=== PATIENT | male | born 1960 | race Caucasian/White ===

== ENCOUNTER 2017-01-25 21:23 | Inpatient (IN) | payer MEDICARE ==
[~2017-01-25] VITALS: Ht 170.2 cm; Wt 141.1 kg
[~2017-01-25 21:23] MED LIST: ALDACTONE100 MG PO; ALDACTONE50 MG PO; CARDURA2 MG PO; CHRONULAC30 ML PO; COZAAR50 MG PO; DYAZIDE 37.5/251 CAP PO; ENULOSE10 G/15 ML PO; GABAPENTIN100 MG PO; HYDROCODON-ACE1 EAC9 PO; HYZAAR 100-25 T1 TAB PO; LANTUS INSULIN10 ML SC; LASIX40 MG PO; MUCINEX600 MG PO; NORCO 7.5/325 T1 TA1 PO; NORVASC5 MG PO; OXYCODONE HCL E20 MG PO; PERCOCET 10/3251 TA1 PO; PHENERGAN25 M1 PO; PROTONIX40 MG PO; PROZAC20 MG PO; RESTORIL15 MG PO; TESSALON PERLE100 MG PO; TOPROL XL50 MG PO; XIFAXAN550 MG PO; ZESTORETIC 10/11 TAB PO
[2017-01-25 22:33] LABS: APPEARANCE CLEAR (CLEAR); BILIRUBIN NEGATIVE (NEGATIVE); COLOR YELLOW (YELLOW); GLUCOSE NEGATIVE (NEGATIVE); KETONE NEGATIVE (NEGATIVE); LEUKOCYTE ESTERASE NEGATIVE (NEGATIVE); NITRITE NEGATIVE (NEGATIVE); PROTEIN NEGATIVE (NEGATIVE); SPECIFIC GRAVITY 1.015 (1.005-1.020); UROBILINOGEN NORMAL (NORMAL)
[2017-01-25 22:37] LABS: BASOPHILS 0.2 % (0-2); EOSINOPHILS 0.6 % (0-7); HEMATOCRIT 33.2 % (42.0-54.0); HEMOGLOBIN 11.2 g/dL (13.5-17.5); IMMATURE GRANULOCYTES 0.2 % (0-5); LYMPHOCYTES 9.8 % (15-50); MCH 31.2 pg (26.0-34.0); MCHC 33.7 g/dL (31.0-37.0); MCV 92.5 fL (80.0-100.0); MEAN PLATELET VOLUME 9.7 fL (7.4-10.4); MONOCYTES 11.1 % (2-11); NEUTROPHILS 78.1 % (40-80); RBC 3.59 10x6/uL (4.20-6.10); RDW 13.8 % (11.5-14.5); WBC 4.7 10x3/uL (4.8-10.8)
[2017-01-25 22:40] LABS: PLATELET COUNT 62 10x3/uL (130-400)
[2017-01-25 22:47] LABS: APTT 31.3 SECONDS (22.8-39.4); INR 1.27 (0.85-1.17); PROTIME 15.8 SECONDS (11.6-15.0)
[2017-01-25 22:50] LABS: UDS - AMPHET NEGATIVE QUAL (NEGATIVE); UDS - BARB NEGATIVE QUAL (NEGATIVE); UDS - BENZO NEGATIVE QUAL (NEGATIVE); UDS - COCAINE NEGATIVE QUAL (NEGATIVE); UDS - METH NEGATIVE QUAL (NEGATIVE); UDS - OPIATE POSITIVE QUAL (NEGATIVE); UDS - PCP NEGATIVE QUAL (NEGATIVE); UDS - THC NEGATIVE QUAL (NEGATIVE)
[2017-01-25 23:01] LABS: ALBUMIN 3.2 g/dL (3.4-5.0); ALKALINE PHOSPHATASE 103 U/L (46-116); ALT (SGPT) 42 U/L (10-68); BILIRUBIN - TOTAL 1.25 mg/dL (0.2-1.3); CALC OSMOLALITY 288 mosm/kg (275-300); CALCIUM 9.6 mg/dL (8.5-10.1); CARBON DIOXIDE 26.5 mmol/L (21.0-32.0); CHLORIDE - SERUM 103 mmol/L (98-107); CREATININE - SERUM 1.7 mg/dL (0.6-1.3); GLUCOSE 151 mg/dL (74-106); POTASSIUM - SERUM 5.4 mmol/L (3.5-5.1); PROTEIN - SERUM 7.2 g/dL (6.4-8.2); SODIUM 136 mmol/L (136-145); UREA NITROGEN 51 mg/dL (7-18); eGFR NON AFRICAN AMERICAN 44 mL/min (90-120)
[2017-01-25 23:02] LABS: D-DIMER-QUANTITATIVE 4.69 ug/mLFEU (0.20-0.54)
[2017-01-25 23:05] LABS: PLATELET ESTIMATE DECREASED
[2017-01-25 23:06] LABS: AMYLASE - SERUM 70 U/L (25-115); LIPASE 225 U/L (73-393); PRO BNP 45 pg/mL (0-125)
[2017-01-25 23:07] LABS: TROPONIN-I < 0.017 ng/mL (0.000-0.060)
[2017-01-26] VITALS (24 sets, daily range): BP systolic 72–155; BP diastolic 43–94; Ht 170.2 cm; Wt 141.1 kg
--- NOTE | 2017-01-26 03:20 | NUR ---
PT ARRIVED TO ICU FROM ER. BP 98/44. HR 52; SINUS BRADYCARDIA SHOWING ON MONITOR. RR 13; EQUAL; MOUTH BREATHING. 98% O2 SAT. TEMP 98.0; TEMPORAL. PT AROUSES TO PAIN; NON VERBAL. GROANS. MUMBLES UNCOMPREHENSIBLE SOUNDS. PIV TO LEFT UPPER ARM; PIV TO LEFT HAND; BOTH SALINE LOCKED. GENERALIZED EDEMA NOTED TO EXTREMITIES X4. NGT IN PLACE. FLORES IN PLACE; PINK TINGED URINE IN COLLECTION BAG.
--- NOTE | 2017-01-26 07:00 | NUR ---
REPORT RECEIVED. ASSESSMENT COMPLETED. WILL RETURN WITH SUPPLIES TO CLEAN PATIENT.
--- NOTE | 2017-01-26 07:30 | NUR ---
PATIENT CLEANED. PATIENT IS NOT ALERT, BUT IS STILL PUSHING STAFF AWAY WHEN TRYING TO PROVIDE CARE. HE IS ATTEMPTING TO PULL HIS NGT OUT. ORDER OBTAINED FOR RESTRAINT AND APPLIED. RECTAL TUBE WAS PLACED AT THIS TIME.
[2017-01-26] MEDS ORDERED: RIBASPHERE200 MG PO (07:48)
[2017-01-26] MEDS ORDERED: SOFOSBUVIR PO (07:49)
[2017-01-26] MEDS ORDERED: LEDIPASVIR PO (07:49)
--- NOTE | 2017-01-26 11:14 | NUR ---
PER PATIENTS REQUEST, HIS SISTER HAS BEEN CALLED. SHE WAS AWARE HE WAS UP HERE AND STATED SHE WOULD BE UP HERE NEXT VISITATION TO SEE HIM. SHE STATED SHE FIGURED HIS AMMONIA LEVEL WAS UP BECAUSE HE HAS BEEN ACTING STRANGER AND STRANGER FOR THE LAST WEEK. THAT WAS PRETTY MUCH ALL SHE SAID AND THEN THE CONVERSATION WAS ENDED.
--- NOTE | 2017-01-26 11:18 | NUR ---
PATIENT WAS TURNED TO HIS LEFT. HE HAS WORKED HIS WAY BACK ON HIS BACK. STATED THAT HE CAN'T LAY ON HIS SIDES. TRIED TO EXPLAIN THAT WE DID NOT WANT HIM TO GET SKIN BREAKDOWN, BUT HE STATED HE DID NOT CARE, HE CAN NOT SLEEP ON HIS SIDE.
--- NOTE | 2017-01-26 11:34 | NUR ---
PATIENT IS MORE ALERT AND ABLE TO TALK. STILL HAS CONFUSION. AT THIS TIME THE RESTRAINTS ARE BEING LEFT OFF. IT WAS EXPLAINED THAT IF HER WERE TO START PULLING ON LINES WE WOULD HAVE TO RERESTRAIN HIM AND PUT THE LINE BACK IN.
--- NOTE | 2017-01-26 12:31 | NUR ---
PATIENTS SISTER HERE. STATED THAT THE PATIENT HAD $150 IN HIS SHIRT POCKET AND THEY ARE WANTING TO KNOW WHERE IT IS. HAVE CALLED AND SPOKE WITH FAUSTO IN THE ER AND SHE SAID THAT IT WOULD BE IN THE SAFE IF THERE WAS ANY MONEY. CALLED [phone] AND SPOKE WITH BRIGITTE, SHE STATED THAT THERE IS NOTHING ON THE LOG THAT SHOWS IT WAS LOCKED UP AND HAS RETRIEVED THE NIEVES TO SEE IF BY CHANCE IT WAS PLACED IN THE LOCK UP WITHOUT BEING LOGGED. AFTER LOOKING SHE SAID THAT IT WAS NOT IN THE SAFE. SHE STATED THAT SHE LOOKED THROUGH THE NOTES AND IT DID NOT SHOW THE PATIENT HAD BELONGINGS. SHE SAID IT SAID THAT THE PATIENT ARRIVED.
--- NOTE | 2017-01-26 12:38 | NUR ---
SPOKE WITH GRISELDA ARROYO UNIT SUPERVISION. SHE IS AWARE OF THE SITUTATION.
--- NOTE | 2017-01-26 12:45 | NUR ---
CALLED AND SPOKE WITH SLY AT [facility]. EXPLAINED THE SITUTATION TO HIM. HE GATHERED THE PATIENTS NAME, , AND ADDRESS PICKED UP AT. HE WILL TALK TO HIS BEAUTY CONSULTANT AND THEY WILL LOOK INTO IT. HE STATED THAT SOMEONE WILL CALL ME BACK. NOW THE SISTER IS SAYING THAT HE HAD $ 150.00 VALE, HIS DEBIT CARD, HIS DRIVERS LICENS, HIS SOCIAL SECURITY CARD AND HIS INSURANCE CARDS IN THE ZIP LOCK BAGGIE THAT WAS IN HIS POCKET.
--- NOTE | 2017-01-26 13:23 | NUR ---
SPOKE WITH SLY FROM [employer]. HE STATED THAT THEY SPOKE WITH THE PARAMEDICS FROM LAST NIGHT AND THEY SAID THERE WAS NOTHING IN THE PATIENTS POCKET.
[2017-01-26] MEDS ORDERED: NORCO 7.5/325 T1 TA1 PO (13:48)
--- NOTE | 2017-01-26 14:05 | NUR ---
DC'D NGT FROM RIGHT NARE. PATIENT TOLERATED WELL. ATE CONTAINER OF APPLESAUCE WITH NO ISSUES NOTED.
--- NOTE | 2017-01-26 15:37 | NUR ---
PATIENTS SISTER CALLED AND SHE STATED THAT SHE DID FIND HIS MONEY IN A PANTS POCKET, BUT STILL HAS NOT FOUND HIS DEBIT CARD, DRIVERS LICENS, ETC YET. SHE REQUESTED THAT I LET THE PATIENT KNOW AND THAT SHE IS STILL LOOKING.
--- NOTE | 2017-01-26 19:30 | NUR ---
ASSESSMENT COMPLETE. S1S2. RR SHALLOW CLEAR EQUAL; NON LABORED. PERRLA. PT CONFUSED TO SITUATION. RESTLESS BEHAVIOR. ATTENTION SEEKING BEHAVIOR; USES CALL LIGHT REGULARLY WITH NO REQUEST UPON ENTER THE ROOM. DENIES PAIN. ABD DISTENDED ROUND/OBESE. RADIAL AND PEDAL PULSES PALPATED. NO DISTRESS NOTED. VSS. WILL CONTINUE TO MONITOR.
--- NOTE | 2017-01-26 21:17 | NUR ---
FAMILY AT BEDSIDE. UPDATE GIVEN.
--- NOTE | 2017-01-26 23:20 | NUR ---
REASSESSMENT COMPLETE. NO CHANGES FROM PREVIOUS ASSESSMENT. NO DISTRESS NOTED. VSS. CALL LIGHT IN REACH. WILL CONTINUE TO MONITOR.
[2017-01-27] VITALS (12 sets, daily range): BP systolic 113–172; BP diastolic 56–95
--- NOTE | 2017-01-27 00:15 | NUR ---
COMPLETE BED BATH. LINEN CHANGE. SMALL AMOUNT OF LEAKAGE FROM RECTAL TUBE. PT FREQUENTLY USES CALL LIGHT; "FORGETS" REASON FOR CALLING.
--- NOTE | 2017-01-27 02:50 | NUR ---
REASSESSMENT COMPLETE. NO CHANGES FROM PREVIOUS ASSESSMENT. FREQUENTLY USES CALL LIGHT. C/O BACK PAIN 12/28.
[2017-01-27 05:37] LABS: BASOPHILS 0.2 % (0-2); EOSINOPHILS 1.4 % (0-7); HEMATOCRIT 35.6 % (42.0-54.0); IMMATURE GRANULOCYTES 0.3 % (0-5); LYMPHOCYTES 11.7 % (15-50); MCH 31.4 pg (26.0-34.0); MCHC 33.7 g/dL (31.0-37.0); MCV 93.2 fL (80.0-100.0); MEAN PLATELET VOLUME 9.5 fL (7.4-10.4); MONOCYTES 14.6 % (2-11); NEUTROPHILS 71.8 % (40-80); PLATELET COUNT 61 10x3/uL (130-400); RBC 3.82 10x6/uL (4.20-6.10); RDW 14.1 % (11.5-14.5)
[2017-01-27 05:48] LABS: ANION GAP 12.4 mmol/L (8-16); CALCIUM 9.8 mg/dL (8.5-10.1); CARBON DIOXIDE 26.1 mmol/L (21.0-32.0)
[2017-01-27 05:56] LABS: CREATININE - SERUM 1.1 mg/dL (0.6-1.3); POTASSIUM - SERUM 4.5 mmol/L (3.5-5.1)
[2017-01-27 06:14] LABS: WBC 6.5 10x3/uL (4.8-10.8)
--- NOTE | 2017-01-27 07:00 | NUR ---
REPORT RECEIVED. ASSESSMENT COMPLETED. PATIENT HAS REQUESTED HIS DOCTOR BE ASKED ABOUT PHYSICAL THERAPY AND ABOUT NONOPOID PAIN MEDICATION TODAY. ASKED IF THIS COULD WAIT UNTIL HE ROUNDED OR IF HE FELT HE NEEDED IT NOW. HE STATED IT COULD WAIT. WILL TALK TO DR WESTFALL.
--- NOTE | 2017-01-27 07:45 | NUR ---
CALL PLACED TO PATIENTS SISTER PER HIS REQUEST FOR SUPPLIES WHEN SHE COMES UP TODAY. SHE STATED SHE WOULD DO HER BEST TO BRING HIM WHAT HE WANTED.
--- NOTE | 2017-01-27 09:22 | NUR ---
PATIENT HAS BEEN FREQUENTING THE CALL LIGHT TODAY. HE CALLS TO REQUEST YOU DO SOMETHING SIMPLE HIS CALL LIGHT WAS IN THE WRONG POSITION TO READING THINGS TO HIM FOR HIM TO TURN AROUND AND REMOVE IT FROM THE NURSES HANDS AND THEN READING IT TO THE NURSE, TO DEMANDING THE NURSE MAKE THE DOCTOR ORDER HIM WHAT HE WANTS. IT HAS BEEN EXPLAINED THAT WE ARE HERE TO ASSIST HIM TO DO WHAT HE CAN'T DO FOR HIMSELF. THAT WE ARE GLAD TO ASSIST AND HELP HIM WITH HIS NEEDS, BUT EVERYTHING NEEDS TO BE DONE AT ONE TIME AND HE CAN'T KEEP SAYING THERE IS NOTHING ELSE AND THEN PRESSING HIS CALL LIGHT LESS THAN 1 MINUTE AFTER THE NURSE LEAVES. ALSO EXPLAINED THAT I CAN RELAY HIS WISHES TO THE DOCTORS BUT I CAN NOT MAKE THEM ORDER ANYTHING. THAT IF THE DOCTOR FEELS IT IS APPROPRIATE, HE WILL ORDER IT. ENCOURAGED HIM TO GET ALL HIS WANTS/DEMANDS OUT RIGHT NOW SO THAT I WOULD BE ABLE TO TAKE CARE OF MY OTHER PATIENTS, GET MEDS PASSED, DOCUMENT, AND/OR ACTUALLY HAVE TIME TO TALK WITH THE DOCTORS. HE STATED HE WAS GOOD FOR THE MOMENT.
--- NOTE | 2017-01-27 10:38 | NUR ---
PATIENT'S SATS DECREASE INTO THE 70'S WHEN HE SLEEPS. PLACED OXYGEN AT 2L ON TO KEEP HIS SATS UP. PATIENT STATED THAT THEY WANTED HIM TO BE TESTED FOR SLEEP APNEA, BUT HE COULD NOT COME UP WITH THE MONEY FOR THE TESTING. HE ALSO SAID THAT HE HAS OXYGEN AT HOME TO USE WHEN HE NEEDS IT. WILL MONITOR.
--- NOTE | 2017-01-27 12:22 | NUR ---
PATIENTS BROTHER IN LAW BROUGHT IN HIS HOME RAJENDRA. THEY ARRIVED IN THE PRESCRIPTION BOTTLE THAT STATED IT WAS FILLED ON 01/04/17 IN A QUANITY OF 28. THE PILLS WERE COUNTED WITH GRISELDA REDMOND AND IT WAS FOUND THAT THERE WAS 12. THE PILLS WERE VERIFIED AND LABLED BY OLMAN, PHARMACIST AND LABLED WITH BARCODE. FIRST DOSE WILL BE GIVEN PER ORDERS. BOTTLE WILL BE LOCKED IN CASSETT AND TRANSFERED WITH PATIENT TO MED/SURG AND THEN SENT HOME WITH HIM ON DISCHARGE.
--- NOTE | 2017-01-27 12:55 | NUR ---
REPORT CALLED TO GRISELDA CUBA ON MED 2. PATIENT WILL BE GOING TO ROOM 2131. THE ROOM IS CURRENTLY DIRTY. SHE WILL CALL BACK WHEN THE ROOM IS CLEAN AND PATIENT WILL BE TRANSFERRED.
--- NOTE | 2017-01-27 19:15 | NUR ---
RECEIVED REPORT, PT SLEEPING, BED IS LOW, SRX2, FLORES IS DRAINING, CALL LIGHT IN REACH, WILL CONTINUE PLAN OF CARE
[2017-01-28 00:20] VITALS: BP 164/88
--- NOTE | 2017-01-28 00:37 | NUR ---
HELICOPTER UTILITY AIRCREWMAN AT BEDSIDE TO OBTAIN VITALS, CALL LIGHT IN REACH. WILL CONTINUE WITH PLAN OF CARE.
--- NOTE | 2017-01-28 04:13 | NUR ---
ASSESSMENT COMPLETE, SEE FLOWSHEET, PT SLEEPING, CALL LIGHT IN REACH, ALARM IS ON, CONTINUE PLAN OF CARE
[2017-01-28 04:37] VITALS: BP 181/77
[2017-01-28 08:20] VITALS: BP 189/88
[2017-01-28 12:28] VITALS: BP 165/66
[2017-01-28 14:19] LABS: BASOPHILS 0.1 % (0-2); EOSINOPHILS 0.6 % (0-7); HEMATOCRIT 34.4 % (42.0-54.0); HEMOGLOBIN 11.6 g/dL (13.5-17.5); IMMATURE GRANULOCYTES 0.5 % (0-5); LYMPHOCYTES 7.2 % (15-50); MCH 31.5 pg (26.0-34.0); MCHC 33.7 g/dL (31.0-37.0); MCV 93.5 fL (80.0-100.0); MEAN PLATELET VOLUME 9.7 fL (7.4-10.4); MONOCYTES 17.8 % (2-11); NEUTROPHILS 73.8 % (40-80); PLATELET COUNT 68 10x3/uL (130-400); RBC 3.68 10x6/uL (4.20-6.10); RDW 13.4 % (11.5-14.5)
[2017-01-28 14:26] LABS: WBC 12.4 10x3/uL (4.8-10.8)
[2017-01-28 14:45] LABS: ALBUMIN 3.3 g/dL (3.4-5.0); ANION GAP 9.6 mmol/L (8-16); BILIRUBIN - TOTAL 4.33 mg/dL (0.2-1.3); CARBON DIOXIDE 27.9 mmol/L (21.0-32.0); CREATININE - SERUM 1.1 mg/dL (0.6-1.3); POTASSIUM - SERUM 4.5 mmol/L (3.5-5.1); PROTEIN - SERUM 7.5 g/dL (6.4-8.2)
[2017-01-28 16:54] VITALS: BP 102/60
--- NOTE | 2017-01-28 17:15 | NUR ---
SPOKE WITH KATYA LOGAN APN TO REPORT LAB WORK.
--- NOTE | 2017-01-28 19:30 | NUR ---
RESUMED CARE OF PT, PT VISITING WITH FAMILY, DENIES ANY NEEDS, BED IS LOW, SRX2, CALL LIGHT IN REACH, WILL CONTINUE PLAN OF CARE
[2017-01-28 22:47] VITALS: BP 173/72
--- NOTE | 2017-01-29 00:37 | NUR ---
PRECISION OPTICS TECHNICIAN AT BEDSIDE TO OBTAIN VITALS, CALL LIGHT IN REACH. WILL CONTINUE WITH PLAN OF CARE.
[2017-01-29 01:51] VITALS: BP 159/91
--- NOTE | 2017-01-29 03:50 | NUR ---
ASSESSMENT COMPLETE, SEE FLOWSHEET, PT IS SLEEPING, FLORES DRAINING, CALL LIGHT IN REACH, BED IS LOW, SRX2, WILL CONTINUE PLAN OF CARE
[2017-01-29 05:13] VITALS: BP 175/84
[2017-01-29 07:19] LABS: BASOPHILS 0.1 % (0-2); EOSINOPHILS 1.1 % (0-7); HEMATOCRIT 33.3 % (42.0-54.0); HEMOGLOBIN 11.6 g/dL (13.5-17.5); IMMATURE GRANULOCYTES 0.7 % (0-5); LYMPHOCYTES 6.6 % (15-50); MCH 31.5 pg (26.0-34.0); MCHC 34.8 g/dL (31.0-37.0); MCV 90.5 fL (80.0-100.0); MEAN PLATELET VOLUME 9.4 fL (7.4-10.4); NEUTROPHILS 73.5 % (40-80); PLATELET COUNT 66 10x3/uL (130-400); RBC 3.68 10x6/uL (4.20-6.10); RDW 13.7 % (11.5-14.5); WBC 12.3 10x3/uL (4.8-10.8)
[2017-01-29 07:51] LABS: ALBUMIN 3.4 g/dL (3.4-5.0); ALKALINE PHOSPHATASE 66 U/L (46-116); ALT (SGPT) 45 U/L (10-68); CALC OSMOLALITY 267 mosm/kg (275-300); CALCIUM 9.4 mg/dL (8.5-10.1); CHLORIDE - SERUM 93 mmol/L (98-107); CREATININE - SERUM 0.9 mg/dL (0.6-1.3); GLUCOSE 173 mg/dL (74-106); POTASSIUM - SERUM 4.7 mmol/L (3.5-5.1); PROTEIN - SERUM 7.9 g/dL (6.4-8.2); SODIUM 127 mmol/L (136-145); THYROID STIMULATING HORMONE 0.29 uIU/mL (0.36-3.74); UREA NITROGEN 39 mg/dL (7-18); eGFR NON AFRICAN AMERICAN > 90 mL/min (90-120)
[2017-01-29 08:00] VITALS: BP 122/62
--- NOTE | 2017-01-29 08:00 | NUR ---
INTRODUCED MYSELF TO PT PRIMARY RN FOR TODAYS SHIFT. PT IS A&O SITTING UP IN BED. SHIFT ASSESSMENT COMPLETED. PT HAS A L.UPPER ARM PIV WITH DRSG CDI PATENT AND SWAB CAPS IN USE. PT ALSO HAS A L.HAND PIV THAT WAS INFILTRATED, D/C PIV WITH CATHETER TIP FULLY INTACT. PT HAS A FLORES IN PLACE DRAINING ORANGISH COLORED URINE TO FLORES BAG, STAT LOCK IN PLACE AND SECURED TO L.INNER THIGH. PT ALSO HAS RECTAL TUBE IN PLACE WITHOUT ANY FECES IN BAG. PTS ABDOMEN IS DISTENDED GREATLY AND VERY FIRM/TIGHT. HYPOACTIVE BS THROUGHOUT ALL QUADRANTS. PT C/O SEVERE ABD. PAIN IN RUQ. WILL TRY TO SEE IF PT CAN HAVE SOMETHING FOR PAIN. PT DENIES WANTING TO ROLL AT THIS TIME, SO I WILL HAVE TO CHECK RECTAL TUBE A LITTLE LATER. CL IN REACH, BED IN LOWEST, SIDE RAILS X2. NO CURRENT NEEDS AT THIS TIME. WILL CTM.
--- NOTE | 2017-01-29 11:56 | NUR ---
PTS FSBS 199. I DID NOT COVER PT WITH SS INSULIN BC HE STATES HE DOESNT DO WELL WITH THE FAST ACTING AND CAN EASILY DROP. PT IS ALSO NOT WANTING TO EAT LUNCH R/T FEELING TOO FULL HIS ABDOMEN IS GREATLY DISTENDED AND TIGHT. BS VERY SLUGGISH/HYPO ACTIVE TO ALMOST ABSENT. PT HAS A RECTAL TUBE IN PLACE BUT NO STOOL YET TODAY. PT DESCRIBES HIS PAIN AND TIGHTNESS ALL OVER BUT MORE IN THE RUQ. WILL CTM AND PROVIDE SOMETHING FOR PAIN AND NAUSEA IF AVAILABLE.
[2017-01-29 12:00] VITALS: BP 193/84
--- NOTE | 2017-01-29 13:45 | NUR ---
PT STILL UNCOMFORTABLE R/T ABDOMEN FILLED WITH GAS. CHECKED RECTAL TUBE AND ITS IN PLACE CORRECTLY. TURNED PT FROM LEFT TO RIGHT AND PT WAS ABLE TO EXPELL A LOT OF GAS. PT ALSO ABLE TO BELCH LARGE AMOUNTS. ENCOURAGED PT TO KEEP MOVING IN BED WHEN ABLE TO HELP RELIEVE SO MUCH GAS PRESSURE. PT VERBALIZED UNDERSTANDING. PT RESTING IN BED AND DENIES ANY FURTHER NEEDS AT THIS TIME. CL IN REACH. WILL CTM.
--- NOTE | 2017-01-29 14:17 | NUR ---
Nutrition follow-up: Diet: Clear liquids Pt with possible ileus per Dr. Bobby Labs reviewed Abdomen distended, tight Wt: 326# Will need nutrition support started if diet unable to advance within 24 hours. RDN following.
--- NOTE | 2017-01-29 16:11 | NUR ---
TURNED PT FROM LEFT SIDE TO RIGHT AND ENCOURAGED BELCHING TO RELIEVE AIR FROM ABDOMEN. MILKED RECTAL TUBE AND MADE SURE IT WAS INTACT. PT VOICED SOME RELIEF FROM BELCHING AND IS GOING TO TRY AND LAY ON HIS L.SIDE FOR A LITTLE BIT. PT RESTING AND DENIES ANY FURTHER NEEDS AT THIS TIME. CL IN REACH. WILL CPOC.
--- NOTE | 2017-01-29 16:30 | NUR ---
PT DENIES WANTING HIS FSBS CHECKED R/T NOT TAKING INSULIN AT HOME ANYWAYS AND HE HASNT BEEN ABLE TO EAT R/T SO MUCH ABDOMINAL PRESSURE.
[2017-01-29 16:48] VITALS: BP 139/71
--- NOTE | 2017-01-29 17:13 | NUR ---
AT BEDSIDE AND ENCOURAGED PT TO AMBULATE OR MOVE AROUND MORE TO RELIEVE ALL HIS GAS. PHYSICAL THERAPY CONSULT PLACED AND GAS CHEWS ORDERED TO HELP RELIEVE SOME OF THE DISCOMFORT. CL IN REACH. WILL CTM.
--- NOTE | 2017-01-29 17:48 | NUR ---
PROVIDED PT WITH NEW GAS CHEWS AND TEACHING PROVIDED ON NEW MED. PT VOICED THANKS AND DENIES ANY FURTHER NEEDS AT THIS TIME. CL IN REACH, BED IN LOWEST, SIDE RAILS X2. WILL CTM.
--- NOTE | 2017-01-29 19:31 | NUR ---
ASSESSMENT COMPLETE, A&O, IV TO LEFT SHOULDER SL, SITE CLEAN AND DRY. RESPERATIONS EVEN ON O2 AT 3 LITER VIA NC. FLORES AND RECTAL TUBE DRAINING TO GRAVITY. PT DENIES PAIN OR NEEDS, BED LOW, CL IN REACH.
--- NOTE | 2017-01-29 20:48 | NUR ---
HS MEDS GIVEN, DENIES PAIN OR NEEDS, BED LOW, CL IN REACH.
[2017-01-29 21:22] VITALS: BP 172/84
--- NOTE | 2017-01-30 00:55 | NUR ---
ESTING WITH EYES CLOSED, RESPERATIONS EVEN, NO S/S DISTRESS NOTED.
[2017-01-30 01:14] VITALS: BP 168/93
[2017-01-30 06:06] VITALS: BP 168/88
--- NOTE | 2017-01-30 06:49 | NUR ---
CONTACT LENS INSPECTOR AT BED SIDE, BATH AND LINEN CHANGE COMPLETE. REPOSITONED IN BED FOR COMFORT.
[2017-01-30 08:54] VITALS: BP 159/52
[2017-01-30 09:31] LABS: BASOPHILS 0.1 % (0-2); EOSINOPHILS 0.6 % (0-7); HEMATOCRIT 33.2 % (42.0-54.0); HEMOGLOBIN 11.6 g/dL (13.5-17.5); IMMATURE GRANULOCYTES 0.5 % (0-5); LYMPHOCYTES 14.3 % (15-50); MCH 31.2 pg (26.0-34.0); MCHC 34.9 g/dL (31.0-37.0); MCV 89.2 fL (80.0-100.0); MEAN PLATELET VOLUME 9.5 fL (7.4-10.4); MONOCYTES 18.3 % (2-11); NEUTROPHILS 66.2 % (40-80); PLATELET COUNT 72 10x3/uL (130-400); RBC 3.72 10x6/uL (4.20-6.10); RDW 13.8 % (11.5-14.5); WBC 11.8 10x3/uL (4.8-10.8)
[2017-01-30 09:45] LABS: ALBUMIN 3.3 g/dL (3.4-5.0); ANION GAP 10.5 mmol/L (8-16); BILIRUBIN - TOTAL 3.07 mg/dL (0.2-1.3); CALCIUM 9.3 mg/dL (8.5-10.1); CARBON DIOXIDE 27.9 mmol/L (21.0-32.0); CREATININE - SERUM 1.3 mg/dL (0.6-1.3); POTASSIUM - SERUM 5.4 mmol/L (3.5-5.1); PROTEIN - SERUM 7.6 g/dL (6.4-8.2)
[2017-01-30 12:20] VITALS: BP 108/65
--- NOTE | 2017-01-30 13:20 | NUR ---
18FR NG PLACED ORDERED. PT TOLERATED WITHOUT ANY PAIN OR ISSUES NOTED. PT IS STILL DROWSY AND WILL RAMBLE OFF SENTENCES BUT NOT MAKE SENSE. AFTER PLACEMENT IMMEDIATE RETURN OF GI CONTENT. ORDERED KUB PROTOCOL TO CONFIRM PLACEMENT AND THEN WILL PLACE TO CONTINOUS LOW SUCTION ORDERED.
--- NOTE | 2017-01-30 15:24 | NUR ---
KUB COULD NOT IDENTIFY NG PLACEMENT R/T POOR IMAGING, PT IS LETHARGIC AND CONFUSED AND NOT FOLLOWING DIRECTIONS, ORDERED NEW STAT KUB AND WILL TRY TO CONFIRM PLACEMENT.
[2017-01-30 17:16] VITALS: BP 112/74
--- NOTE | 2017-01-30 18:59 | NUR ---
KUB STILL NOT SHOWING IF NG IS IN CORRECT PLACE R/T POOR IMAGING, PT IS MORBIDLY OBESE AND ALSO VERY DISTENDED AND TIGHT SO THAT COULD BE THE PROBLEM. HOWEVER PT HAS ALREADY HAD OVER 700ML OF GRASSY GREEN CONTENT FROM NG TUBE. WILL NOT USE TUBE FOR MEDS OR FLUSH UNTIL ABLE TO VERIFY, WILL LEAVE ON CONT. LOW SUCTION AT THIS TIME AND CTM.
--- NOTE | 2017-01-30 19:27 | NUR ---
ASSESSMENT COMPLETE, RESPERATIONS EVEN ON 02 AT 3 LITER VIA NC. NG TUBE TO RIGHT NARE TO CONTINOUS LOW SUCTION. DARK GREEN COLORED LIQUID NOTED IN CANISTER. IV TO LEFT SHOULDER SL, DRSG AND J LOOP CHANGED. PT ALSO HAS FLORES AND RECTAL TUBE DRAINING TO GRAVITY. NO NEEDS EXPRESSED AT THIS TIME, BED LOW, CL IN REACH, WILL CONT TO MONITOR.
[2017-01-30 20:00] VITALS: BP 143/68
--- NOTE | 2017-01-30 20:54 | NUR ---
HS MEDS GIVEN THROUGH THE IV ORDERED. PO MEDS HELD DUE TO PT BEING NPO BECAUSE OF NG TUBE. NO NEEDS EXPRESSED AT THIS TIME, BED LOW, CL IN REACH.
[2017-01-31] VITALS: BP 138/69
--- NOTE | 2017-01-31 02:03 | NUR ---
ALONG WITH PLASTICS FABRICATOR OR WELDER, BATH GIVEN, HAIR WASHED WITH SHAMPOO CAP AND LINENS CHANGED. REPOSITIONED IN BED FOR COMFORT. HOB AT 40 DEGREES, NGT TO LOW SUCTION. WILL CONT TO MONITOR.
[2017-01-31 04:00] VITALS: BP 117/57
[2017-01-31 05:18] LABS: BASOPHILS 0.1 % (0-2); EOSINOPHILS 3.4 % (0-7); HEMATOCRIT 32.4 % (42.0-54.0); HEMOGLOBIN 10.8 g/dL (13.5-17.5); MCH 30.9 pg (26.0-34.0); MCHC 33.3 g/dL (31.0-37.0); MEAN PLATELET VOLUME 10.5 fL (7.4-10.4); PLATELET COUNT 64 10x3/uL (130-400); RDW 14.2 % (11.5-14.5)
[2017-01-31 05:21] LABS: LYMPHOCYTES 15 % (15-50); MCV 92.6 fL (80.0-100.0); NEUTROPHILS 65 % (40-80)
[2017-01-31 05:22] LABS: MONOCYTES 17 % (2-11)
[2017-01-31 05:57] LABS: ALBUMIN 3.1 g/dL (3.4-5.0); ANION GAP 11.9 mmol/L (8-16); BILIRUBIN - TOTAL 3.06 mg/dL (0.2-1.3); CALCIUM 8.8 mg/dL (8.5-10.1); CARBON DIOXIDE 26.8 mmol/L (21.0-32.0); CREATININE - SERUM 1.1 mg/dL (0.6-1.3); POTASSIUM - SERUM 5.7 mmol/L (3.5-5.1)
[2017-01-31 08:38] VITALS: BP 141/68
--- NOTE | 2017-01-31 10:02 | NUR ---
PT STILL LETHARGIC AND WONT WAKE UP. STERNAL RUB DONE AND PT STATED "STOP" BUT WILL NOT OPEN HIS EYES. DENTURES ARE IN PLACE AND KEEP COMING LOOSE, TRIED TO GET PT TO OPEN HIS MOUTH AND LET ME SOAK HIS DENTURES SO HE DOESNT CHOKE HOWEVER HE WONT FOLLOW COMMANDS. TRIED TO OPEN HIS MOUTH MYSELF AND PULL THEM OUT AND PT CLAMPED HIS MOUTH DOWN AND WOULDNT ALLOW ME. WILL LEAVE FOR NOW AND TRY AGAIN LATER.
--- NOTE | 2017-01-31 10:59 | NUR ---
PTS FAMILY AT BEDSIDE ASKING QUESTIONS. GOT FAMILY UP TO DATE WITH WHATS GOING ON. THEY ARE CONCERNED BUT VERBALIZED UNDERSTANDING. PTS DENTURES WERE FOUND ON HIS STOMACH SO I PLACED THEM IN A DENTURE CUP. PT RESTING QUIETLY WITH EYES CLOSED AND SNORING. NO CURRENT NEEDS IDENTIFIED. WILL CTM.
--- NOTE | 2017-01-31 11:30 | NUR ---
INITITATED PTS IVPB FLAGYL, INFUSING VIA L.SHOULDER PIV ACCESS. PT IS STILL VERY LETHARGIC AND WONT STAY AWAKE. PERRLA INTACT. TURNED PTS NG OFF SUCTION TO ADMINISTER ORDERED LACTULOSE, WILL TURN BACK TO LOW CONTINUOUS SUCTION IN ABOUT 30-45MINS TO MAKE SURE ITS DIGESTED. CL IN REACH. WILL CTM.
[2017-01-31 12:24] VITALS: BP 147/72
--- NOTE | 2017-01-31 12:43 | NUR ---
TURNED NG OFF OF SUCTION TO ADMINISTER KAYEXALATE R/T PTS POTASSIUM LEVEL 5.7. [address] PL[address] BACK TO CONTINUOUS LOW SUCTION IN ABOUT 30-45 MINS. PT RESTING QUIETLY IN BED WITH EYES CLOSED AND SNORING. NO NEEDS IDENTIFIED. WILL CTM.
--- NOTE | 2017-01-31 15:11 | NUR ---
TRIED GETTING PT TO WAKE UP TO TRY AND TURN SO I COULD CHECK HIS RECTAL TUBE HOWEVER PT IS VERY LETHARGIC AND WILL NOT FOLLOW COMMANDS. TRIED ROLLING PT AND HE SWATTED TOWARDS ME. CALLED FOR ASSISTANCE. PT WAS A MAX ASSIST REQUIRING 4 PEOPLE TO TURN HIM ONTO HIS L.SIDE. PT DID MOAN AND GROAN AND SAY STOP BUT HE STILL IS VERY LETHARGIC AND WONT WAKE COMPLETELY UP. RECTAL TUBE IS IN PLACE AND DRAINING JUST NOT VERY MUCH TO ANY. FLORES IN PLACE AND STAT LOCK SECURED TO R.INNER THIGH. FLORES CARE COMPLETED AND WASHED PTS BUTTOCKS. PULLED PT UP IN BED AND REPOSITIONED FOR COMFORT. PT STATES HE IS COMFORTABLE BUT WONT ANSWER ANY FURTHER QUESTIONS. CL IN REACH. WILL CTM.
[2017-01-31 16:11] VITALS: BP 138/78
--- NOTE | 2017-01-31 16:37 | NUR ---
FSBS 168 WILL NOT TREAT R/T PT BEING NPO AND POSSIBLY DROPPING. WILL CTM.
[2017-01-31 20:00] VITALS: BP 154/76
--- NOTE | 2017-01-31 22:00 | NUR ---
MEDS GIVEN THROUGH NGT. SUCTION TURNED OFF AT THIS TIME.
--- NOTE | 2017-01-31 22:45 | NUR ---
RESTARTED NGT TO LIS. GREEN BILE EMPTYING INTO CANISTER. CALL LIGHT IN REACH. WILL CONTINUE TO MONITOR.
[2017-02-01] VITALS (7 sets, daily range): BP systolic 131–153; BP diastolic 66–80
--- NOTE | 2017-02-01 03:30 | NUR ---
BED BATH AND LINENS CHANGED, PT GRIMMACED AND MOANED WHILE TURNING.
[2017-02-01 06:14] LABS: ALBUMIN 3.2 g/dL (3.4-5.0); ANION GAP 9.4 mmol/L (8-16); BILIRUBIN - TOTAL 2.85 mg/dL (0.2-1.3); CALCIUM 9.1 mg/dL (8.5-10.1); CARBON DIOXIDE 29.4 mmol/L (21.0-32.0); CREATININE - SERUM 1.5 mg/dL (0.6-1.3); POTASSIUM - SERUM 5.8 mmol/L (3.5-5.1); PROTEIN - SERUM 7.6 g/dL (6.4-8.2)
[2017-02-01 06:15] LABS: HEMOGLOBIN 11.5 g/dL (13.5-17.5); LYMPHOCYTES 9.8 % (15-50); MCH 31.7 pg (26.0-34.0); MCHC 34.8 g/dL (31.0-37.0); MCV 90.9 fL (80.0-100.0); MEAN PLATELET VOLUME 8.1 fL (7.4-10.4); NEUTROPHILS 44.4 % (40-80); PLATELET COUNT 115 10x3/uL (130-400); RBC 3.63 10x6/uL (4.20-6.10); RDW 15.6 % (11.5-14.5); WBC 8.9 10x3/uL (4.8-10.8)
--- NOTE | 2017-02-01 14:49 | NUR ---
Nutrition follow-up: Pt is now NPO with NGT->LIWS Labs reviewed Pt is not meeting est nutritional needs at this time Recommend starting nutrition support today. Recommend TF of Suplena @ 20 ml/hr with increase to goal rate of 55 ml/hr. RDN following.
--- NOTE | 2017-02-01 21:38 | NUR ---
HS MEDS GIVEN, PO MEDS HELD DUE TO PT BEING NPO BECAUSE OF NG TUBE TO LIS.
--- NOTE | 2017-02-02 00:42 | NUR ---
TAPE FOLDING MACHINE OPERATOR AT BEDSIDE FOR VS. NEEDS ADDRESSED AT THIS TIME. CALL LIGHT IN REACH. WILL CONT TO MONITOR.
--- NOTE | 2017-02-02 01:10 | NUR ---
NOTIFIED BY GARNETT FEEDER THAT PT HAS AN ELEVATED TEMP OF 102 AX. ICE PACK PLACED TO LEFT SIDE OF NECK AND COOL CLOTH PLACED ON FOREHEAD. REPOSITIONED IN BED FOR COMFORT.
--- NOTE | 2017-02-02 01:31 | NUR ---
CALL PLACED TO WON LOGAN APN OCCUPATIONAL PHYSICIAN FOR DR GRANT, REPORTED ELEVATED TEMP. ORDERS GIVEN FOR STAT BLOOD CULTURES AND TO CHANGE OUT FLORES CATH AND OBTAIN URINE FOR UA AND CULTURE.
--- NOTE | 2017-02-02 02:03 | NUR ---
FLORES CATH REMOVED, TIP INTACT. 16 FR FLORES CATH RE INSERTED USING STERILE TECHINQUE. IMMEDIATE URINE RETURN NOTED IN CATHETER TUBING. PT TOLERATED WELL. WILL CONT TO MONITOR.
--- NOTE | 2017-02-02 02:24 | NUR ---
TYLENOL LIQUID 650 MG GIVEN VIA NG TUBE FOR ELEVATED TEMP OF 102.2 AX. TUBE CLAMMPED WILL RESUME SUCTION IN 30-40 MINUTES.
--- NOTE | 2017-02-02 03:46 | NUR ---
URINE SPECIMEN FOR AND CLX COLLECTED AND TAKEN TO LAB.
[2017-02-02 04:05] VITALS: BP 136/76
[2017-02-02 04:06] LABS: APPEARANCE CLOUDY (CLEAR); BILIRUBIN 1+ (NEGATIVE); COLOR DK YELLOW (YELLOW); GLUCOSE NEGATIVE (NEGATIVE); KETONE NEGATIVE (NEGATIVE); LEUKOCYTE ESTERASE 1+ (NEGATIVE); NITRITE NEGATIVE (NEGATIVE); PROTEIN TRACE mg/dL (NEGATIVE); SPECIFIC GRAVITY 1.015 (1.005-1.020); UROBILINOGEN NORMAL (NORMAL)
[2017-02-02 04:12] LABS: BACTERIA MANY /hpf (NONE SEEN); EPITHELIAL CELLS 0-5 /hpf (0-5); MUCUS <1+ /lpf (NONE SEEN); RED CELLS - URINE >50 /hpf (0-5); WHITE CELLS - URINE 0-5 /hpf (0-5)
[2017-02-02 04:13] LABS: AMORPHOUS SEDIMENT >1+ /lpf (NONE SEEN); GRANULAR CAST OCC /lpf (NONE SEEN); HYALINE CAST OCC /lpf (NONE SEEN)
[2017-02-02 06:20] LABS: HEMATOCRIT 36.9 % (42.0-54.0); HEMOGLOBIN 12.1 g/dL (13.5-17.5); MCH 31.3 pg (26.0-34.0); MCHC 32.8 g/dL (31.0-37.0); MEAN PLATELET VOLUME 9.1 fL (7.4-10.4); PLATELET COUNT 110 10x3/uL (130-400); RBC 3.87 10x6/uL (4.20-6.10); RDW 15.3 % (11.5-14.5)
[2017-02-02 06:29] LABS: MCV 95.3 fL (80.0-100.0); WBC 13.6 10x3/uL (4.8-10.8)
[2017-02-02 06:38] LABS: ALBUMIN 3.3 g/dL (3.4-5.0); ANION GAP 9.5 mmol/L (8-16); BILIRUBIN - TOTAL 2.45 mg/dL (0.2-1.3); CALCIUM 9.1 mg/dL (8.5-10.1); CARBON DIOXIDE 30.1 mmol/L (21.0-32.0); POTASSIUM - SERUM 5.6 mmol/L (3.5-5.1); PROTEIN - SERUM 7.6 g/dL (6.4-8.2)
[2017-02-02 06:43] LABS: EOSINOPHILS 1 % (0-7); LYMPHOCYTES 11 % (15-50); MONOCYTES 21 % (2-11); NEUTROPHILS 45 % (40-80); PLATELET ESTIMATE DECREASED
--- NOTE | 2017-02-02 06:45 | NUR ---
RECEIVED REPORT FROM CATTLE ALLEY WORKER NURSE, NOE BROWN. PT IN BED, LETHARGIC AND SNORING AT THIS TIME. CALL LIGTH IN REACH, NAD NOTED, WILL CONTINUE TO MONITOR.
[2017-02-02 08:16] VITALS: BP 156/88
--- NOTE | 2017-02-02 08:45 | NUR ---
ADMINISTERED 650MG OF TYLENOL FOR A TEMP OF 101.3, PT LETHARGIC.
--- NOTE | 2017-02-02 08:48 | NUR ---
ADMINISTERED 650MG OF TYLENOL FOR TEMP OF 101.3, SUCTION TURNED OFF AT THIS TIME, WILL TURN BACK ON IN ABOUT 30-45MIN. PT'S GOWN SOILED CHANGED AT THIS TIME. PT VERY LETHARGIC, SNORING REAL LOUD. X-RAY TECHS AT BEDSIDE TO GET ABD XRAY. CALL LIGHT IN REACH, NAD NOTED, WILL CONTINUE TO MONITOR.
--- NOTE | 2017-02-02 11:33 | NUR ---
IVPB FLAGYL STARTED INFUSING AT THIS TIME. SUCTION CANISTER CHANGED AT THIS TIME. FAMILY AT BEDSIDE, PT STILL LETHARGIC, CALL LIGHT IN REACH, NAD NOTED, WILL CONTINUE TO MONITOR.
[2017-02-02 11:51] VITALS: BP 138/83
--- NOTE | 2017-02-02 13:58 | NUR ---
GAVE PT BEDBATH WITH THE ASSISTANCE OF 2 EMPLOYMENT CONSULTANT'S AND PHYSICAL THERAPY. ALSO PROVIDED ORAL CARE. PT OPENED HIS EYES AND MOANED WHEN WE TURNED HIM TO WASH HIS BACK. NAD NOTED, CALL LIGHT IN REACH, WILL CONTINUE TO MONITOR.
--- NOTE | 2017-02-02 16:22 | NUR ---
SUCTIONED TURNED OFF AT THIS TIME TO ADMINISTER LACTULOSE. WILL TURN BACK ON IN ABOUT 45MIN. WILL STILL VERY LETHARGIC WILL TRY TO OPEN HIS EYES WHEN SPOKEN TOO. IV FLUIDS INFUSING TO LT SHOULDER IV AT 150CC/HR, PER WON LOGAN'S ORDERS. NAD NOTED, WILL CONTINUE TO MONITOR.
[2017-02-02 16:42] VITALS: BP 133/70
--- NOTE | 2017-02-02 17:35 | NUR ---
NEW BAG OF IVF HUNG AT THIS TIME. AND SUCTION CANISTER CHANGED AT THIS TIME TOO. PT SLEEPING, SNORING. NAD NOTED, RECTAL TUBE OUTPUT SAME THIS AM. NO MORE OUTPUT FOR TODAY. WILL CONTINUE TO MONITOR.
--- NOTE | 2017-02-02 19:38 | NUR ---
650MG OF TYLENOL GIVEN FOR A TEMP OF 102 VIA NG TUBE, SUCTIONED STOPPED AT THIS TIME, WILL LET NIGHT NURSE KNOW TO TURN SUCTION BACK ON IN ABOUT 45MIN. RECTAL TUBE D/C AT THIS TIME, 45ML OF SALINE WERE REMOVED. PT TOLERATED PROCEDURE WELL.
[2017-02-02 20:29] VITALS: BP 103/59
--- NOTE | 2017-02-02 23:25 | NUR ---
BP IS 85/45. 02 @ 70 VERY DIAPHORTIC. RAPID RESPONSE CALLED. TEMP 102.3 AX HAS BEEN VERY LETHARGIC. ONLY RESPONSES TO STERNAL RUB. FS [id number].
[2017-02-03 00:10] VITALS: BP 85/45
--- NOTE | 2017-02-03 00:10 | NUR ---
ABGS DONE AND Miguel LOGAN CALLED FOR ORDERS. MANUAL BP 88/50. CHEST XRAY DONE.
--- NOTE | 2017-02-03 02:45 | NUR ---
MAKING ROUNDS RESP AGONAL. NO 02 SAT REGISTERING EYES FIXED AND DILATED. BP 41/23. CODE BLUE CALLED. ELIEZER TAVARES RN CALLED FAMILY FOR THEIR WISHES. FAMILY MADE PT A DNR. MS 2MG GIVEN ORDERED BY DR. BEDOYA. Miguel TURPIN.
--- NOTE | 2017-02-03 03:08 | NUR ---
RESP @ 11 AND AGONAL. FAMILY ON THE WAY. WILL CONTINUE TO MONITOR.
--- NOTE | 2017-02-03 03:18 | NUR ---
ACADEMIC MANAGER INFORMED NURSE OF PT BEING FLATLINE. PT NOT BREATHING. / WON GRACES APN NOTIFIED.
--- NOTE | 2017-02-03 03:51 | NUR ---
[facility] NOTIFIED AND RELEASED PATIENT. [facility] NOTIFIED.
--- NOTE | 2017-02-03 04:58 | NUR ---
RELEASED TO HOME.
== END 2017-02-03 05:01 | DRG 432 ==
LOC: D.ER 21:23 → D.M2 01-26 01:00 → D.ICU 01-26 01:00 → D.M2 01-27 14:35
PROVIDERS: Family Medicine; ADMIT Emergency Medicine
PROC: 0T9B70Z Drainage of Bladder with Drainage Device, Via Natural or Artificial Opening (ICD-10-PCS; principal; 2017-01-26)
PROC: 0D9670Z Drainage of Stomach with Drainage Device, Via Natural or Artificial Opening (ICD-10-PCS; 2017-01-26)
PROC: 0D9670Z Drainage of Stomach with Drainage Device, Via Natural or Artificial Opening (ICD-10-PCS; 2017-01-30)
DX: K74.60 Unspecified cirrhosis of liver (principal); B19.21 Unspecified viral hepatitis C with hepatic coma; E72.20 Disorder of urea cycle metabolism, unspecified; Z68.43 Body mass index [BMI] 50.0-59.9, adult; N17.9 Acute kidney failure, unspecified; K56.7 Ileus, unspecified; D69.6 Thrombocytopenia, unspecified; E66.01 Morbid (severe) obesity due to excess calories; I11.0 Hypertensive heart disease with heart failure; I50.9 Heart failure, unspecified; E11.9 Type 2 diabetes mellitus without complications; Z78.1 Physical restraint status; F41.8 Other specified anxiety disorders; F11.90 Opioid use, unspecified, uncomplicated; E87.5 Hyperkalemia; B18.2 Chronic viral hepatitis C